=== PATIENT | female | born 2005 | race African-American/Black ===

== ENCOUNTER 2024-12-29 20:52 | Emergency (ER) | payer OTHER ==
[2024-12-29 20:59] VITALS: BP 108/63; PULSE 95; RESP 18; TEMP 98.8; BMI 34.3
[2024-12-29] MEDS ORDERED: METOCLOPRAMIDE HCL INJECTION 10 MG/2 ML VIAL ONE (21:36)
[2024-12-29] MEDS: SODIUM CHLORIDE 1,000 ML IV STA (22:07)
[2024-12-29] MEDS: METOCLOPRAMIDE HCL INJECTION 10 MG/2 ML VIAL IVPUSH ONE (22:15)
[2024-12-29 23:43] LABS: HCV DIAGNOSTIC IN-HOUSE W/RFLX NON-REACTIVE (NONREACTIVE); HIV INTERPRETATION NEGATIVE (NEGATIVE)
== END 2024-12-29 23:04 | disposition home or self-care (01) ==
LOC: JERFT 20:52
PROC: 3E033GC Introduction of Other Therapeutic Substance into Peripheral Vein, Percutaneous Approach (ICD-10-PCS; principal; 2024-12-29)
PROC: 3E033GC Introduction of Other Therapeutic Substance into Peripheral Vein, Percutaneous Approach (ICD-10-PCS; 2024-12-29)
PROC: 3E0337Z Introduction of Electrolytic and Water Balance Substance into Peripheral Vein, Percutaneous Approach (ICD-10-PCS; 2024-12-29)
DX: G44.209 Tension-type headache, unspecified, not intractable (principal); R11.2 Nausea with vomiting, unspecified
CPT/HCPCS: 36415; 86803; 87389; 99284-25